=== PATIENT | female | born 1990 | race Caucasian/White ===

== ENCOUNTER 2019-12-04 17:57 | Emergency (ER) | payer MEDICAID, SELFPAY ==
[2019-12-04] MEDS ORDERED: Lidocaine 1% (PF) 30 ML VIAL ONE (18:57)
[2019-12-04] MEDS ORDERED: cefTRIAXone\\ROCEPHIN 250 MG VIAL ONE (18:57)
[2019-12-04 19:53] LABS: Bilirubin Negative (Negative); Blood, Urine Small (Negative); Glucose, Urine (Dipstick) Negative (Negative); Leukocyte Negative (Negative); Nitrite Negative (Negative); Protein, Urine (Dipstick) Negative (Neg-Trace); Urobilinogen 0.2 mg/dL (Less than 2)
[2019-12-04 19:56] LABS: Clarity Clear (Clear)
[2019-12-04 19:57] LABS: Pregnancy Test - Urine (BHCG) Negative (Negative); Pregu Control Background? CLEAR/WHITE (CLR/WHITE); Pregu Control Bar Appear? YES (CONTROL BAR); Specific Gravity 1.025 (1.002-1.036)
[2019-12-07 19:25] LABS: Chlam.trachomatis by PCR,Urine Not Detected (NotDetected)
== END 2019-12-04 19:06 | disposition home or self-care (01) ==
LOC: ERS 17:57
DX: Z20.2 Contact with and (suspected) exposure to infections with a predominantly sexual mode of transmission (principal); Z86.19 Personal history of other infectious and parasitic diseases
CPT/HCPCS: 81003; 81015; 81025; 87491; 87591; 96372; 99283; J0696; J2001